=== PATIENT | male | born 1985 | race Caucasian/White ===

== ENCOUNTER 2016-11-19 13:16 | Emergency (ER) | payer SELFPAY ==
[~2016-11-19] VITALS: Ht 188 cm; Wt 80.0 kg
[~2016-11-19 13:16] MED LIST: ALPR0.5T99 PO
[2016-11-19 13:18] VITALS: BP 136/84; PULSE 97; RESP 20; TEMP 97.9; O2SAT 97
--- NOTE | 2016-11-19 15:37 | RADRPT ---
EXAM DATE/TIME: 11/19/2016 15:08 [facility] COMPARISON: No previous studies available for comparison. INDICATIONS : Left leg pain. MEDICAL HISTORY : Left leg pain. Anxiety. SURGICAL HISTORY : None. ENCOUNTER: Initial ACUITY: 4 - 6 days PAIN SCORE: 0/10 LOCATION: Left leg. TECHNIQUE: Venous ultrasound of the leg was performed from the inguinal ligament to the proximal calf. Real-samantha e, color Doppler and spectral tracing, compression and augmentation techniques were used. FINDINGS: There is normal compressibility of the deep venous system from the inguinal region to the proximal ca lf. No echogenic clot is seen in the lumen of the common femoral, femoral, popliteal, and posterior tibial veins. There is a normal response of the venous system to proximal and distal augmentation an d respiration. However, the palpable lump along the medial left calf represents a thrombosed superficial varicose ve in. CONCLUSION: 1. The palpable lump along the medial calf represents a thrombosed superficial varicose vein. 2. The deep veins of the left lower extremity are patent. Diony Lange MD on November 19, 2016 at 15:34 Board Certified Radiologist. This report was verified electronically.
[2016-11-19] MEDS ORDERED: ASPIRIN 325 MG TAB PO ONE (16:30)
[2016-11-19] MEDS ORDERED: ASPI325T PO (16:39)
--- NOTE | 2016-11-19 16:39 | PD ---
HPI Chief Complaint: Abnormal Results Time Seen by Provider: 16:30 Travel History International Travel<30 days: No Contact w/Intl Traveler<30days: No Traveled to known affect area: No History of Present Illness HPI 31-year-old male presents to the emergency department sent by his psychiatrist for possible DVT to the left lower extremity. Patient states he has a lump to his left leg that is tender to palpation. He denies any history of blood clots. He states that he has been off of illicit drugs for proximal knee 1 month and 4 days. He also has a history of anxiety and ADHD. He denies any fevers or chills. No other complaints. PFSH Past Medical History Anxiety: Yes Social History Alcohol Use: Yes (OCCASIONAL) Tobacco Use: No Substance Use: No Allergies-Medications (Allergen,Severity, Reaction): Coded Allergies: No Known Allergies (Unverified , 09/24/11) Reported Meds & Prescriptions Reported Meds & Active Scripts Active Reported Xanax (Alprazolam) 0.5 Mg Tab 0.5 Mg PO BIDPRN Review of Systems Except as stated in HPI: all other systems reviewed are Neg Physical Exam Narrative GENERAL: Well-developed well-nourished male patient, ambulatory. Afebrile. SKIN: Warm and dry. HEAD: Normocephalic. Atraumatic. EYES: No scleral icterus. No injection or drainage. NECK: Supple, trachea midline. No JVD or lymphadenopathy. CARDIOVASCULAR: Regular rate and rhythm without murmurs, gallops, or rubs. Left pedal pulse is 2+. RESPIRATORY: Breath sounds equal bilaterally. No accessory muscle use. Lungs sounds are clear to auscultation. GASTROINTESTINAL: Abdomen soft, non-tender, nondistended. MUSCULOSKELETAL: No cyanosis, or edema. Patient has a small palpable on the left medial calf. There is tenderness to palpation. BACK: Nontender without obvious deformity. No CVA tenderness. Data Data Last Documented VS Vital Signs Date Time Temp Pulse Resp B/P Pulse Ox O2 Delivery O2 Flow Rate FiO2 11/19/16 13:18 97.9 97 20 136/84 97 Orders Us Leg Venous Doppler (11/19/16 ) Aspirin (Aspirin) (11/19/16 16:30) MDM Medical Decision Making Medical Screen Exam Complete: Yes Emergency Medical Condition: Yes Medical Record Reviewed: Yes Differential Diagnosis Varicose vein versus cyst versus DVT Narrative Course 31 year old male presents to the emergency department sent by his psychiatrist to rule out DVT to the left leg. Venous Doppler ultrasound of the left extremity shows a thrombosed superficial varicose vein, no DVT. I discussed this with my attending physician, Dr. Sauer, who recommends aspirin and warm compresses. Patient is given aspirin 325 mg by mouth. He is stable for discharge. The patient was discharged in stable condition with instructions, including return instructions and follow up instructions. Diagnosis Primary Impression: Superficial vein thrombosis Referrals: Primary Care Physician call for appointment Patient Instructions: General Instructions, Superficial Thrombophlebitis (ED) Additional Instructions: Take Aspirin 325 mg PO daily. Warm compresses. Follow up with a primary care physician. Return to the emergency department for any acute, worsening of symptoms. Med/Other Pt SpecificInfo: Prescription(s) given Scripts Aspirin 325 Mg [id number] Mg PO DAILY #30 TAB Ref 0 Prov:aCrolyn Silverio 11/19/16 Disposition: 01 DISCHARGE HOME Condition: Stable Carolyn Silverio Nov 19, 2016 16:39
== END 2016-11-19 16:46 | disposition home or self-care (01) ==
LOC: NEPB 13:16
DX: I82.812 Embolism and thrombosis of superficial veins of left lower extremity (principal)
CPT/HCPCS: 93971

== ENCOUNTER 2017-07-18 12:22 | Observation (INO) | payer OTHER ==
[~2017-07-18] VITALS: Ht 188 cm; Wt 70.6 kg
[2017-07-18] VITALS (7 sets, daily range): BP systolic 116–121; BP diastolic 64–73; PULSE 63–100; RESP 16–19; TEMP 97.2–98; O2SAT 98–99
[~2017-07-18 12:22] MED LIST changes: +ASPI-183 PO
[2017-07-18] MEDS ORDERED: SODIUM CHLOR 0.9% 1000 ML INJ 1,000 ML IV SCH (12:58)
[2017-07-18] MEDS ORDERED: SODIUM CHLORIDE 0.9% FLUSH 10 ML FLUSH IV FLUSH PRN (13:00)
[2017-07-18] MEDS ORDERED: ONDANSETRON HCL 4 MG/2 ML VIAL IVP ONE (13:00)
[2017-07-18] MEDS ORDERED: BACT800T5 PO (13:01)
--- NOTE | 2017-07-18 13:10 | PD ---
HPI Chief Complaint: Abdominal Pain Time Seen by Provider: 12:43 Travel History International Travel<30 days: No Contact w/Intl Traveler<30days: No Traveled to known affect area: No History of Present Illness HPI 32-year-old male presents to the emergency department for evaluation of jaundice , fatigue, nausea that started 4 days ago. Patient states he was at [facility] one week ago for infection in his right volar wrist. They did lab work at that time and told him that his liver enzymes were elevated. He states he did not have the jaundice or symptoms at that time. Patient also reports left lower quadrant abdominal pain that started 4 days ago. He denies any fevers or chills. He states he was a heavy alcoholic drinker up until 2 years ago. He also states that he has history of IV drug use. He was off of it for the past 4 months, but then restarted 2 weeks ago. He states that he uses IV Dilaudid and IV methamphetamine. Patient states that he was prescribed Percocet when he left for the [facility], but states he has not taken it and does not take Tylenol. He is on Clindamycin and Bactrim for skin infection. He reports surgery to the right hand, but no abdominal surgeries. No radiation of pain. Quality is aching. Severity is moderate. Patient denies any relieving or exacerbating factors. [facility] Past Medical History Anxiety: Yes Diminished Hearing: No Genitourinary: Yes (UTI) Tetanus Vaccination: < 5 Years Influenza Vaccination: No Social History Alcohol Use: Yes (OCCASIONAL) Tobacco Use: No Substance Use: Yes (IV Dilaudid and IV methamphetamine) Allergies-Medications (Allergen,Severity, Reaction): Coded Allergies: No Known Allergies (Verified Adverse Reaction, Unknown, 07/18/17) Reported Meds & Prescriptions Reported Meds & Active Scripts Active Reported Bactrim DS (Sulfamethoxazole-Trimethoprim) 800-160 Mg Tab 1 Tab PO BID Review of Systems Except as stated in HPI: all other systems reviewed are Neg Physical Exam Narrative GENERAL: Well-nourished, well-developed male patient, afebrile. SKIN: Focused skin assessment warm/dry. Patient has yellowing of the skin and sclera. Patient has area of erythema to right volar wrist with central scab, appears to be healing. HEAD: Normocephalic. Atraumatic EYES: No injection or drainage. NECK: Supple, trachea midline. No JVD or lymphadenopathy. CARDIOVASCULAR: Regular rate and rhythm without murmurs, gallops, or rubs. RESPIRATORY: Breath sounds equal bilaterally. No accessory muscle use. GASTROINTESTINAL: Abdomen soft and nondistended. Mild tenderness over right upper quadrant, left lower quadrant. MUSCULOSKELETAL: No cyanosis, or edema. BACK: Nontender without obvious deformity. No CVA tenderness. Data Data Last Documented VS Vital Signs Date Time Temp Pulse Resp B/P (MAP) Pulse Ox O2 Delivery O2 Flow Rate FiO2 07/18/17 14:20 97.8 66 17 119/73 (88) 99 Room Air Orders Orders Complete Blood Count With Diff (07/18/17 12:58) Comprehensive Metabolic Panel (07/18/17 12:58) Lipase (07/18/17 12:58) Prothrombin Time / Inr (Pt) (07/18/17 12:58) Act Partial Throm Time (Ptt) (07/18/17 12:58) Urinalysis - C+S If Indicated (07/18/17 12:58) Ct Abd/Pel W Iv Contrast(Rout) (07/18/17 12:58) Iv Access Insert/Monitor (07/18/17 12:58) Ecg Monitoring (07/18/17 12:58) Oximetry (07/18/17 12:58) Ondansetron Inj (Zofran Inj) (07/18/17 13:00) Sodium Chlor 0.9% 1000 Ml Inj (Ns 1000 M (07/18/17 12:58) Sodium Chloride 0.9% Flush (Ns Flush) (07/18/17 13:00) Ammonia (07/18/17 12:58) Tylenol (Acetaminophen) (07/18/17 12:58) Admit To Inpatient (07/18/17 ) Activity Oob With Assistance (07/18/17 16:07) Scd Bilateral/Knee High SHERRIE.QSHIFT (07/18/17 16:07) Vital Signs (Adult) SHERRIE.Q4H (07/18/17 16:07) Measuring Clerk / Telemetry SHERRIE.Q8H (07/18/17 16:07) Inpatient Certification (07/18/17 ) Ondansetron Inj (Zofran Inj) (07/18/17 16:15) Comprehensive Metabolic Panel (07/19/17 06:00) Complete Blood Count With Diff (07/19/17 06:00) Prothrombin Time / Inr (Pt) (07/19/17 06:00) Iohexol 350 Inj (Omnipaque 350 Inj) (07/18/17 16:04) Diet Regular Basic (07/18/17 Dinner) Sodium Chlor 0.9% 1000 Ml Inj (Ns 1000 M (07/18/17 16:15) Oxycodone (Roxicodone) (07/18/17 16:15) Ob/Psych Drug Screen, Urine (07/18/17 16:11) Us Abdomen Liver (07/18/17 ) Kelly-Hinds Virus Ab Eval (07/18/17 16:23) Cmv Dna Pcr Quantitative (07/18/17 16:23) Hsv1&2 Igg Select (07/18/17 16:23) Hepatitis Profile (07/18/17 16:23) Hepatitis B Core Total Ab (07/18/17 16:23) Admit Order (Ed Use Only) (07/18/17 16:28) Labs Laboratory Tests Test 07/18/17 13:10 07/18/17 13:15 07/18/17 13:20 Urine Color DARK-YELLOW Urine Turbidity CLEAR Urine pH 6.5 Urine Specific [place] 1.012 Urine Protein NEG mg/dL Urine Glucose (UA) NEG mg/dL Urine Ketones NEG mg/dL Urine Occult Blood NEG Urine Nitrite NEG Urine Bilirubin MOD Urine Urobilinogen 2.0 MG/DL Urine Leukocyte Esterase NEG Urine WBC LESS THAN 1 /hpf Urine Calcium Oxalate Crystals RARE /hpf Urine Mucus FEW /lpf Microscopic Urinalysis Comment CULT NOT INDICATED Ammonia 44 MCMOL/L White Blood Count 8.1 TH/MM3 Red Blood Count 4.27 MIL/MM3 Hemoglobin 12.1 GM/DL Hematocrit 36.1 % Mean Corpuscular Volume 84.7 FL Mean Corpuscular Hemoglobin 28.4 PG Mean Corpuscular Hemoglobin Concent 33.5 % Red Cell Distribution Width 17.0 % Platelet Count 308 TH/MM3 Mean Platelet Volume 8.8 FL CBC Comment AUTO DIFF Differential Total Cells Counted 100 Neutrophils % (Manual) 54 % Band Neutrophils % 1 % Lymphocytes % 26 % Monocytes % 1 % Eosinophils % 3 % Neutrophils # (Manual) 4.9 TH/MM3 Metamyelocytes 3 % Myelocytes 1 % Promyelocytes 1 % Differential Comment FINAL DIFF MANUAL Atypical Lymphocytes 10 % Prothrombin Time 12.1 SEC Prothromb Time International Ratio 1.1 RATIO Activated Partial Thromboplast Time 28.9 SEC Blood Urea Nitrogen 8 MG/DL Creatinine 0.77 MG/DL Random Glucose 101 MG/DL Total Protein 7.1 GM/DL Albumin 3.1 GM/DL Calcium Level 8.3 MG/DL Alkaline Phosphatase 450 U/L Aspartate Amino Transf (AST/SGOT) 1641 U/L Alanine Aminotransferase (ALT/SGPT) 2800 U/L Total Bilirubin 5.8 MG/DL Sodium Level 138 MEQ/L Potassium Level 3.6 MEQ/L Chloride Level 102 MEQ/L Carbon Dioxide Level 26.5 MEQ/L Anion Gap 10 MEQ/L Lipase 113 U/L Acetaminophen Level LESS THAN 2.0 MCG/ML [facility] Medical Decision Making Medical Screen Exam Complete: Yes Emergency Medical Condition: Yes Medical Record Reviewed: Yes Interpretation(s) Last Impressions Abdomen/Pelvis CT 07/18/17 1258 Signed Impressions: Service Date/Time: Tuesday, July 18, 2017 15:58 - CONCLUSION: Negative CT scan abdomen and pelvis. Jax Peace MD FACR Differential Diagnosis Hepatitis versus liver failure versus pancreatitis versus diverticulitis Narrative Course 32-year-old male presents to the emergency department for evaluation PT, nausea , chilling of the skin and eyes, abdominal pain for 4 days. CBC, CMP, lipase, PTT, PT/INR, UA, ammonia level, Tylenol level are ordered and pending. CT abdomen/pelvis with IV contrast is ordered and pending. Patient is given normal saline 1 L IV bolus, Zofran 4 mg IV. CBC shows no acute abnormality. CMP shows elevated bilirubin 5.8, AST 1641, ALT 2800, alkaline phosphatase 450. Lipase is 113. PT is 12.1, INR 1.1, PTT 28.9. UA shows moderate bilirubin. Ammonia level is 44. Tylenol level is less than 2.0. CT abdomen/pelvis is negative. Dr. Gómez accepted admission. Diagnosis Primary Impression: Acute liver failure Qualified Codes: K72.00 - Acute and subacute hepatic failure without coma Admitting Information Admitting Physician Requests: Admit Carolyn Silverio Jul 18, 2017 13:10
[2017-07-18 14:21] LABS: HEMATOCRIT 36.1 % (39.0-51.0); MEAN CELL VOLUME 84.7 FL (80.0-100.0); MEAN CORPUSCULAR HEMOGLOBIN 28.4 PG (27.0-34.0); MEAN CORPUSCULAR HGB CONC 33.5 % (32.0-36.0); PLATELET COUNT 308 TH/MM3 (150-450); RED BLOOD COUNT 4.27 MIL/MM3 (4.50-5.90); WHITE BLOOD COUNT 8.1 TH/MM3 (4.0-11.0)
[2017-07-18 14:22] LABS: HEMO FLAGS AUTO DIFF
[2017-07-18 14:26] LABS: APTT (PATIENT) 28.9 SEC (24.3-30.1); INTERNATIONAL NORMALIZED RATIO 1.1 RATIO; PROTHROMBIN TIME - PATIENT 12.1 SEC (9.8-11.6)
[2017-07-18 14:42] LABS: BLOOD, URINE NEG (NEG); CALCIUM OXALATE CRYSTALS,URINE RARE /hpf; COMMENT (UR) CULT NOT INDICATED; CULTURE IF INDICATED CULT NOT INDICATED; GLUCOSE,URINE NEG (NEG); KETONE, URINE NEG (NEG); MUCUS URINE FEW /lpf (OCC); NITRITE,URINE NEG (NEG); PH, URINE 6.5 (5.0-8.5); URINE COLOR DARK-YELLOW (YELLW/STRAW)
[2017-07-18 14:42] LABS: ANION GAP 10 MEQ/L (5-15); BICARBONATE 26.5 MEQ/L (21.0-32.0); BLOOD UREA NITROGEN 8 MG/DL (7-18); CHLORIDE 102 MEQ/L (98-107); POTASSIUM 3.6 MEQ/L (3.5-5.1); SODIUM (NA) 138 MEQ/L (136-145)
[2017-07-18 14:55] LABS: ALKALINE PHOSPHATASE 450 U/L (45-117); ALT (GPT) 2800 U/L (12-78); AST (GOT) 1641 U/L (15-37); TOTAL BILIRUBIN ADULT 5.8 MG/DL (0.2-1.0)
[2017-07-18 14:58] LABS: ATYPICAL LYMPHOCYTES 10 % (0-0); BANDS 1 % (0-6); EOSINOPHILS 3 % (0-4); METAMYELOCYTES 3 % (0-1); MYELOCYTES 1 % (0-0); NEUTROPHIL # MANUAL DIFF 4.9 TH/MM3 (1.8-7.7); POLYS (SEG NEUTROPHILS) 54 % (16-70); PROMYELOCYTES 1 % (0-0); WBC DIFF SAMPLE 100
[2017-07-18 14:59] LABS: SCAN/DIFF FINAL DIFF MANUAL
[2017-07-18 15:23] LABS: ACETAMINOPHEN LESS THAN 2.0 MCG/ML (10.0-30.0)
[2017-07-18] MEDS ORDERED: IOHEXOL 350 MG/ML 10 ML VIAL (for RAD DIAG) IVCONTRAST ONE (16:04)
--- NOTE | 2017-07-18 16:21 | RADRPT ---
EXAM DATE/TIME: 07/18/2017 15:58 [place] Corrected on: July 18, 2017; [facility] COMPARISON: No previous studies available for comparison. INDICATIONS : Left lateral abdomen pain today. IV CONTRAST: 92 cc Omnipaque 350 (iohexol) IV ORAL CONTRAST: No oral contrast ingested. RADIATION DOSE: 6.64 CTDIvol (mGy) MEDICAL HISTORY : None SURGICAL HISTORY : None. ENCOUNTER: Initial ACUITY: 1 day PAIN SCALE: 5/10 LOCATION: Left lateral abdomen TECHNIQUE: Volumetric scanning of the abdomen and pelvis was performed. Using automated exposure control and ad justment of the mA and/or kV according to patient size, radiation dose was kept as low as reasonably achievable to obtain optimal diagnostic quality images. DICOM format image data is available electro nically for review and comparison. FINDINGS: Lung base is are clear. The liver, spleen, pancreas and adrenals unremarkable Gallbladder is contracted There is symmetrical renal function Cecum and terminal ileum unremarkable There is no adenopathy There is no ascites Pelvic contents are normal Bone windows are unremarkable. CONCLUSION: Negative CT scan abdomen and pelvis. Jax Peace MD FACR on July 18, 2017 at 16:17 Board Certified Radiologist. This report was verified electronically. Jax Peace MD FACR on July 18, 2017 at 17:07 Board Certified Radiologist. This report was verified electronically.
--- NOTE | 2017-07-18 16:26 | HHI.HP ---
HPI Service [facility] Hospitalists Primary Care Physician Denisse Wright D.O. Admission Diagnosis Acute hepatocellular injury/Hepatitis Chief Complaint: Jaundice Travel History International Travel<30 Days: No Contact w/Intl Traveler <30 Da: No Traveled to Known Affected Are: No History of Present Illness Mr. Flores is a 32 y/o WM with hx of ADD and IVDA. Pt had recently relapsed and started using IV drugs around 2-3 weeks ago and was injecting into the upper extremities about once per day. He was injecting Methamphetamines and smoking marijuana. He denies any cocaine use or any other synthetic drug use. Pt recently was admitted to [facility] with right wrist cellulitis/abscess from 07/07 to 07/10. Pt was treated in the hospital with IV Zosyn and Vancomycin and was discharged on Cipro and Bactrim x 14 days and Percocet. He had a 2D echo performed which noted EF 60-65% and no evidence of vegetations. He was checked for HIV and viral hepatitis during that admission which were negative. His LFTs were elevated as well. Labs on 07/07 noted AST 353/ALT 420 and repeat labs on with AST 927/ALT 1168. He reports that has taken 6 Percocet pills over the last week since his discharge. He has been injecting Dilaudid for the last 3 days in the left arm. He last used methamphetamines yesterday. Around 4 days ago he started having increased fatigue, nausea and then 2 days ago started noticing yellowing of his eyes and darkening of his urine. He has hx of withdrawal symptoms from the opiates. Pt has not been on any prescription medications other than the recently prescribed antibiotics and Percocet. Pt had been on Suboxone previously but he has not taken this in 6 months. He denies any Tylenol (other than the Percocet) or NSAID use. Pt reports that his girlfriend has recently been sick with sore throat and congestion for about 1-2 weeks. The pt noted an enlarged lymph node in the right axilla that was present when the infection in the right wrist began. Pt also reports night sweats for several weeks where he wakes up "soaking the sheets." Denies any fevers or chills recently. He denies any sore throat. Pt denies sharing any needles. He was checked for HIV at [facility] which was negative. Review of Systems Constitutional: DENIES: Fever, Chills Ears, nose, mouth, throat: DENIES: Hearing loss, Throat pain, Running Nose Respiratory: DENIES: Cough, Sputum production, Shortness of breath Cardiovascular: DENIES: Chest pain, Lower Extremity Edema Gastrointestinal: COMPLAINS OF: Abdominal pain, GERD, Nausea, DENIES: Black stools, Bloody stools, Constipation, Diarrhea, Vomiting Genitourinary: DENIES: Urgency, Hematuria, Dysuria Musculoskeletal: COMPLAINS OF: Muscle aches Integumentary: COMPLAINS OF: Abnormal pigmentation, DENIES: Rash Neurologic: DENIES: Headache Psychiatric: DENIES: Confusion Past Family Social History Past Medical History ADD IVDA with methamphetamines and dilaudid Past Surgical History Hardware placement in right wrist for boxer's fracture Reported Medications Bactrim DS (Sulfamethoxazole-Trimethoprim) 800-160 Mg Tab 1 Tab PO BID Ciprofloxacin Percocet Allergies: Coded Allergies: No Known Allergies (Verified Allergy, Unknown, 07/18/17) Family History Noncontributory Social History (+)Tobacco use, 1/2-1ppd Occasional alcohol use, none in the last week or so. No regular use Relapsed IDVA recently within the last 2 weeks with use of IV Dilaudid and methamphetamines, last used methamphetamines yesterday. No narcotic pain meds in 4 days. Pt had been drug free for 4 months. He started using IV drugs 2 years ago when he went through divorce (+)Marijuana use Physical Exam Vital Signs Vital Signs Date Time Temp Pulse Resp B/P (MAP) Pulse Ox O2 Delivery O2 Flow Rate FiO2 07/18/17 14:20 97.8 66 17 119/73 (88) 99 Room Air 07/18/17 13:10 68 17 98 Room Air 07/18/17 13:10 18 07/18/17 12:24 97.7 100 16 119/64 (82) 98 Physical Exam GENERAL: This is a well-nourished, well-developed patient, in no apparent distress. SKIN: Jaundice HEENT: Atraumatic. Normocephalic. No temporal or scalp tenderness. Bilateral scleral icterus. Airway patent. NECK: Trachea midline, supple, nontender. CARDIO: Regular RESP: CTA bilaterally. No wheezes, rales, or rhonchi. ABD: +BS, soft, RUQ and LLQ tenderness, nondistended. EXT: Right volar aspect of the wrist with some minimal erythema and a central scab which appears to be healing well. Enlarged lymph node in the right axilla NEURO: Awake and alert. Motor and sensory grossly within normal limits. Normal speech. Laboratory Laboratory Tests Test 07/18/17 13:10 07/18/17 13:15 07/18/17 13:20 Urine Color DARK-YELLOW Urine Turbidity CLEAR Urine pH 6.5 Urine Specific [place] 1.012 Urine Protein NEG Urine Glucose (UA) NEG Urine Ketones NEG Urine Occult Blood NEG Urine Nitrite NEG Urine Bilirubin MOD Urine Urobilinogen 2.0 Urine Leukocyte Esterase NEG Urine WBC LESS THAN 1 Urine Calcium Oxalate Crystals RARE Urine Mucus FEW Microscopic Urinalysis Comment CULT NOT INDICATED Ammonia 44 White Blood Count 8.1 Red Blood Count 4.27 Hemoglobin 12.1 Hematocrit 36.1 Mean Corpuscular Volume 84.7 Mean Corpuscular Hemoglobin 28.4 Mean Corpuscular Hemoglobin Concent 33.5 Red Cell Distribution Width 17.0 Platelet Count 308 Mean Platelet Volume 8.8 CBC Comment AUTO DIFF Differential Total Cells Counted 100 Neutrophils % (Manual) 54 Band Neutrophils % 1 Lymphocytes % 26 Monocytes % 1 Eosinophils % 3 Neutrophils # (Manual) 4.9 Metamyelocytes 3 Myelocytes 1 Promyelocytes 1 Differential Comment FINAL DIFF MANUAL Atypical Lymphocytes 10 Prothrombin Time 12.1 Prothromb Time International Ratio 1.1 Activated Partial Thromboplast Time 28.9 Blood Urea Nitrogen 8 Creatinine 0.77 Random Glucose 101 Total Protein 7.1 Albumin 3.1 Calcium Level 8.3 Alkaline Phosphatase 450 Aspartate Amino Transf (AST/SGOT) 1641 Alanine Aminotransferase (ALT/SGPT) 2800 Total Bilirubin 5.8 Sodium Level 138 Potassium Level 3.6 Chloride Level 102 Carbon Dioxide Level 26.5 Anion Gap 10 Lipase 113 Acetaminophen Level LESS THAN 2.0 Result Diagram: 07/18/17 1320 07/18/17 1320 Imaging Last Impressions Abdomen/Pelvis CT 07/18/17 1258 Signed Impressions: Service Date/Time: Tuesday, July 18, 2017 15:58 - CONCLUSION: Negative CT scan abdomen and pelvis. Jax Peace MD FACR Septic Shock Reassessment Heart: Regular rate and rhythm Lungs: Clear Skin: Warm Caprini VTE Risk Assessment Caprini VTE Risk Assessment: Mod/High Risk (score >= 2) Caprini Risk Assessment Model Point Value = 1 Point Value = 2 Point Value = 3 Point Value = 5 Age 41-60 Minor surgery BMI > 25 kg/m2 Swollen legs Varicose veins or History of unexplained or recurrent spontaneous Oral contraceptives or hormone replacement Sepsis (< 1 month) Serious lung disease, including pneumonia (< 1 month) Abnormal pulmonary function Acute myocardial infarction Congestive heart failure (< 1 month) History of inflammatory bowel disease Medical patient at bed rest Age 61-74 Arthroscopic surgery Major open surgery (> 45 min) Laparoscopic surgery (> 45 min) Malignancy Confined to bed (> 72 hours) Immobilizing plaster cast Central venous access Age >= 75 History of VTE Family history of VTE Factor V Leiden Prothrombin [id number] Lupus anticoagulant Anticardiolipin antibodies Elevated serum homocysteine Heparin-induced thrombocytopenia Other congenital or acquired thrombophilia Stroke (< 1 month) Elective arthroplasty Hip, pelvis, or leg fracture Acute spinal cord injury (< 1 month) Prophylaxis Regimen Total Risk Factor Score Risk Level Prophylaxis Regimen 0-1 Low Early ambulation 2 Moderate Order ONE of the following: *Sequential Compression Device (SCD) *Heparin 5000 units SQ BID 3-4 Higher Order ONE of the following medications: *Heparin 5000 units SQ TID *Enoxaparin/Lovenox 40 mg SQ daily (WT < 150 kg, CrCl > 30 mL/min) *Enoxaparin/Lovenox 30 mg SQ daily (WT < 150 kg, CrCl > 10-29 mL/min) *Enoxaparin/Lovenox 30 mg SQ BID (WT < 150 kg, CrCl > 30 mL/min) AND/OR *Sequential Compression Device (SCD) 5 or more Highest Order ONE of the following medications: *Heparin 5000 units SQ TID (Preferred with Epidurals) *Enoxaparin/Lovenox 40 mg SQ daily (WT < 150 kg, CrCl > 30 mL/min) *Enoxaparin/Lovenox 30 mg SQ daily (WT < 150 kg, CrCl > 10-29 mL/min) *Enoxaparin/Lovenox 30 mg SQ BID (WT < 150 kg, CrCl > 30 mL/min) AND *Sequential Compression Device (SCD) Assessment and Plan Problem List: (1) Acute liver failure ICD Codes: K72.00 - Acute and subacute hepatic failure without coma Status: Acute Plan: - Pt is a 32 y/o WM with hx of ADD and IVDA. - Pt had recently relapsed and started using IV drugs around 2-3 weeks ago and was injecting into the upper extremities about once per day, Methamphetamines and smoking marijuana. Pt recently was admitted to [facility] with right wrist cellulitis/abscess from 07/07 to 07/10. Pt was treated in the hospital with IV Zosyn and Vancomycin and was discharged on Cipro and Bactrim x 14 days and Percocet. He had a 2D echo performed which noted EF 60-65% and no evidence of vegetations. He was checked for HIV and viral hepatitis during that admission which were negative. His LFTs were elevated as well. Labs on 07/07 noted AST 353/ALT 420 and repeat labs on 07/10 with AST 927/ALT 1168. - Pt presented to the ED with complaints of 4 days ago he started having increased fatigue, nausea and then 2 days ago started noticing yellowing of his eyes and darkening of his urine. - He reports that has taken 6 Percocet pills over the last week since his discharge. He has been injecting Dilaudid for the last 3 days in the left arm. He last used methamphetamines yesterday. - Labs at admission noted AST 1641/ALT 2800, AlkPhos 450, and Tbili 5.8 - CT Abd/pelvis was negative. - Pts acute liver injury/failure may be secondary to drug induced hepatitis with his continued IVDA with methamphetamines vs. viral etiologies vs. other. Pt has not used much tylenol and initial labs were negative for acetaminophen. - Check Viral Hepatitis, CMV, EBV, and HSV - Check Liver US - Blood cultures - Monitor LFTs and PT/INR - IVF - Supportive care - We will give Oxycodone PRN as he has had withdrawal symptoms in the past - DVT prophylaxis with SCDs Physician Certification 2 Midnight Certification Type: Admission for Inpatient Services Order for Inpatient Services The services are ordered in accordance with Medicare regulations or non- Medicare payer requirements, as applicable. In the case of services not specified as inpatient-only, they are appropriately provided as inpatient services in accordance with the 2-midnight benchmark. Estimated LOS (days): 3 3 days is the estimated time the patient will need to remain in the hospital, assuming treatment plan goals are met and no additional complications. Post-Hospital Plan: Home Problem Qualifiers (1) Acute liver failure: Qualified Codes: K72.00 - Acute and subacute hepatic failure without coma Camilla Henriquez Jul 18, 2017 16:26
[2017-07-18] MEDS: SODIUM CHLOR 0.9% 1000 ML INJ 1,000 ML IV SCH (16:52)
--- NOTE | 2017-07-18 17:19 | RADRPT ---
EXAM DATE/TIME: 07/18/2017 16:51 [place] COMPARISON: No previous studies available for comparison. INDICATIONS : Jaundice. MEDICAL HISTORY : Urinary tract infection. Anxiety. Substance abuse. SURGICAL HISTORY : Right hand surgery. ENCOUNTER: Initial ACUITY: 1 day PAIN SCORE: 0/10 LOCATION: Bilateral upper quadrant MEASUREMENTS: LIVER: 17.4 cm length COMMON DUCT: 2 mm RIGHT KIDNEY: 11.9 x 5.9 x 4.8 cm SPLEEN: 12.8 cm length FINDINGS: LIVER: Liver is free of focal defects. COMMON DUCT: Small and contracted with thickened wall. GALLBLADDER: Contains no stones, demonstrates no wall thickening or pericholecystic fluid. PANCREAS: The visualized portions are within normal limits. RIGHT KIDNEY: No hydronephrosis, stone or mass. SPLEEN: Mildly prominent. CONCLUSION: Contracted gallbladder with wall thickening, nonspecific. There are no gallstones. Jax Peace MD FACR on July 18, 2017 at 17:16 Board Certified Radiologist. This report was verified electronically.
[2017-07-19] VITALS: BP 109/62; PULSE 82; RESP 17; TEMP 97.4; O2SAT 99
[2017-07-19] MEDS: SODIUM CHLOR 0.9% 1000 ML INJ 1,000 ML IV SCH ×2 (01:10→21:35)
[2017-07-19 08:00] VITALS: BP 120/69; PULSE 75; RESP 20; TEMP 97.7; O2SAT 95
[2017-07-19 10:11] LABS: INTERNATIONAL NORMALIZED RATIO 1.1 RATIO; PROTHROMBIN TIME - PATIENT 12.1 SEC (9.8-11.6)
[2017-07-19 10:13] LABS: HEMATOCRIT 39.9 % (39.0-51.0); MEAN CELL VOLUME 83.6 FL (80.0-100.0); MEAN CORPUSCULAR HEMOGLOBIN 28.4 PG (27.0-34.0); PLATELET COUNT 332 TH/MM3 (150-450); RED BLOOD COUNT 4.77 MIL/MM3 (4.50-5.90); WHITE BLOOD COUNT 8.4 TH/MM3 (4.0-11.0)
[2017-07-19 10:15] LABS: HEMO FLAGS AUTO DIFF
--- NOTE | 2017-07-19 10:17 | HHI.PR ---
Subjective Remarks Pt reports that overall he is feeling better today Tolerating oral intake No BM yet Objective Vitals Vital Signs Date Time Temp Pulse Resp B/P (MAP) Pulse Ox O2 Delivery O2 Flow Rate FiO2 07/19/17 08:00 97.7 75 20 120/69 (86) 95 07/19/17 07:14 20 07/19/17 00:00 97.4 82 17 109/62 (78) 99 07/18/17 20:00 98.0 86 16 116/64 (81) 99 07/18/17 20:00 85 07/18/17 17:34 97.2 65 19 119/67 (84) 99 07/18/17 17:05 97.8 63 17 121/66 (84) 99 07/18/17 16:58 97.8 63 17 121/66 (84) 99 Room Air 07/18/17 14:20 97.8 66 17 119/73 (88) 99 Room Air 07/18/17 13:10 68 17 98 Room Air 07/18/17 13:10 18 07/18/17 12:24 97.7 100 16 119/64 (82) 98 07/19/17 07/19/17 07/20/17 15:00 23:00 07:00 Intake Total 240 ml Balance 240 ml Intake Oral 240 ml Result Diagram: 07/18/17 1320 07/18/17 1320 Other Results Laboratory Tests Test 07/18/17 13:10 07/18/17 13:15 07/18/17 13:20 07/19/17 09:08 Urine Color DARK-YELLOW Urine Turbidity CLEAR Urine pH 6.5 Urine Specific [place] 1.012 Urine Protein NEG mg/dL Urine Glucose (UA) NEG mg/dL Urine Ketones NEG mg/dL Urine Occult Blood NEG Urine Nitrite NEG Urine Bilirubin MOD Urine Urobilinogen 2.0 MG/DL Urine Leukocyte Esterase NEG Urine WBC LESS THAN 1 /hpf Urine Calcium Oxalate Crystals RARE /hpf Urine Mucus FEW /lpf Microscopic Urinalysis Comment CULT NOT INDICATED Urine Opiates Screen NEG Urine Barbiturates Screen NEG Urine Amphetamines Screen POS Urine Benzodiazepines Screen NEG Urine Cocaine Screen NEG Urine Cannabinoids Screen NEG Ammonia 44 MCMOL/L White Blood Count 8.1 TH/MM3 Red Blood Count 4.27 MIL/MM3 Hemoglobin 12.1 GM/DL Hematocrit 36.1 % Mean Corpuscular Volume 84.7 FL Mean Corpuscular Hemoglobin 28.4 PG Mean Corpuscular Hemoglobin Concent 33.5 % Red Cell Distribution Width 17.0 % Platelet Count 308 TH/MM3 Mean Platelet Volume 8.8 FL CBC Comment AUTO DIFF Differential Total Cells Counted 100 Neutrophils % (Manual) 54 % Band Neutrophils % 1 % Lymphocytes % 26 % Monocytes % 1 % Eosinophils % 3 % Neutrophils # (Manual) 4.9 TH/MM3 Metamyelocytes 3 % Myelocytes 1 % Promyelocytes 1 % Differential Comment FINAL DIFF MANUAL Atypical Lymphocytes 10 % Prothrombin Time 12.1 SEC 12.1 SEC Prothromb Time International Ratio 1.1 RATIO 1.1 RATIO Activated Partial Thromboplast Time 28.9 SEC Blood Urea Nitrogen 8 MG/DL Creatinine 0.77 MG/DL Random Glucose 101 MG/DL Total Protein 7.1 GM/DL Albumin 3.1 GM/DL Calcium Level 8.3 MG/DL Alkaline Phosphatase 450 U/L Aspartate Amino Transf (AST/SGOT) 1641 U/L Alanine Aminotransferase (ALT/SGPT) 2800 U/L Total Bilirubin 5.8 MG/DL Sodium Level 138 MEQ/L Potassium Level 3.6 MEQ/L Chloride Level 102 MEQ/L Carbon Dioxide Level 26.5 MEQ/L Anion Gap 10 MEQ/L Lipase 113 U/L Acetaminophen Level LESS THAN 2.0 MCG/ML Imaging Last Impressions Abdomen/Pelvis CT 07/18/17 1258 Signed Impressions: Service Date/Time: Tuesday, July 18, 2017 15:58 - CONCLUSION: Negative CT scan abdomen and pelvis. Jax Peace MD FACR Liver Ultrasound 07/18/17 0000 Signed Impressions: Service Date/Time: Tuesday, July 18, 2017 16:51 - CONCLUSION: Contracted gallbladder with wall thickening, nonspecific. There are no gallstones. Jax Peace MD FACR Objective Remarks General: NAD, AAOx3 Chest: CTA Cardiac: Regular Abd: +BS, soft ND, mild LUQ tenderness Ext: Right wrist volar erythema is stable, central scab, appears to be healing. A/P Problem List: (1) Acute liver failure ICD Codes: K72.00 - Acute and subacute hepatic failure without coma Status: Acute Plan: - Pt is a 32 y/o WM with hx of ADD and IVDA. - Pt had recently relapsed and started using IV drugs around 2-3 weeks ago and was injecting into the upper extremities about once per day, Methamphetamines and smoking marijuana. Pt recently was admitted to [facility] with right wrist cellulitis/abscess from 07/07 to 07/10. Pt was treated in the hospital with IV Zosyn and Vancomycin and was discharged on Cipro and Bactrim x 14 days and Percocet. He had a 2D echo performed which noted EF 60-65% and no evidence of vegetations. He was checked for HIV and viral hepatitis during that admission which were negative. His LFTs were elevated as well. Labs on 07/07 noted AST 353/ALT 420 and repeat labs on 07/10 with AST 927/ALT 1168. - Pt presented to the ED with complaints of 4 days ago he started having increased fatigue, nausea and then 2 days ago started noticing yellowing of his eyes and darkening of his urine. - He reports that has taken 6 Percocet pills over the last week since his discharge. He has been injecting Dilaudid for the last 3 days in the left arm. He last used methamphetamines yesterday. - Labs at admission noted AST 1641/ALT 2800, AlkPhos 450, and Tbili 5.8 - CT Abd/pelvis was negative. - Pts acute liver injury/failure may be secondary to drug induced hepatitis with his continued IVDA with methamphetamines vs. viral etiologies vs. other. Pt has not used much Tylenol and initial labs were negative for acetaminophen. - Await Viral Hepatitis, CMV, EBV, and HSV - Liver US (07/18) --> Contracted gallbladder with wall thickening, nonspecific. There are no gallstones - Blood cultures pending - Awaiting repeat LFTs today - Monitor LFTs and PT/INR - IVF - Supportive care - We will give Oxycodone PRN as he has had withdrawal symptoms in the past - DVT prophylaxis with SCDs Assessment and Plan Patient examined. Assessment and plan formulated with Camilla Henriquze PA-C. Jhony agree with the above. acute hepatitis/hepatocellular injury. presumed secondary to injection of amphetamines. he also injects dilaudid. wean oxycodone to avoid narcotic w/d. follow LFT for trend down. viral studies pending. Pt not decompensated from liver injury at this point. wrist wound not tender/hot/draining. Problem Qualifiers (1) Acute liver failure: Qualified Codes: K72.00 - Acute and subacute hepatic failure without coma Camilla Henriquez Jul 19, 2017 10:17 Chintan Gómez MD Jul 19, 2017 12:35
[2017-07-19 10:57] LABS: ALKALINE PHOSPHATASE 451 U/L (45-117); ALT (GPT) 2712 U/L (12-78); ANION GAP 7 MEQ/L (5-15); AST (GOT) 1603 U/L (15-37); BICARBONATE 25.7 MEQ/L (21.0-32.0); BLOOD UREA NITROGEN 7 MG/DL (7-18); CHLORIDE 105 MEQ/L (98-107); GLOMERULAR FILTRATION RATE 105 ML/MIN (>89); SODIUM (NA) 138 MEQ/L (136-145); TOTAL BILIRUBIN ADULT 6.5 MG/DL (0.2-1.0)
[2017-07-19 11:05] LABS: BANDS 6 % (0-6); BASOPHILS 2 % (0-2); EOSINOPHILS 1 % (0-4); NEUTROPHIL # MANUAL DIFF 5.2 TH/MM3 (1.8-7.7); POLYS (SEG NEUTROPHILS) 56 % (16-70); WBC DIFF SAMPLE 100
[2017-07-19 11:06] LABS: PLATELET ESTIMATE SMEAR NORMAL (NORMAL); PLATELET MORPHOLOGY NORMAL (NORMAL); SCAN/DIFF FINAL DIFF MANUAL
[2017-07-19] MEDS ORDERED: MAGNESIUM HYDROXIDE SUSP 30 ML CUP PO PRN (11:15)
[2017-07-19] MEDS ORDERED: MAGNESIUM HYDROXIDE SUSP 30 ML CUP PO ONE (11:15)
[2017-07-19 12:00] VITALS: BP 118/59; PULSE 71; RESP 19; TEMP 96.9; O2SAT 96
[2017-07-19] MEDS: DOCUSATE SODIUM 100 MG CAP PO SCH ×2 (13:41→21:35)
[2017-07-19 14:26] VITALS: PULSE 95
[2017-07-19 20:00] VITALS: BP 112/63; PULSE 64; RESP 17; TEMP 97.6; O2SAT 97
[2017-07-20] VITALS (7 sets, daily range): BP systolic 105–112; BP diastolic 57–68; PULSE 55–78; RESP 16–17; TEMP 97.1–97.9; O2SAT 95–97
[2017-07-20] MEDS: ONDANSETRON HCL 4 MG/2 ML VIAL IV PRN (01:41)
[2017-07-20 04:14] LABS: ANION GAP 8 MEQ/L (5-15); BLOOD UREA NITROGEN 9 MG/DL (7-18); CHLORIDE 104 MEQ/L (98-107); POTASSIUM 4.1 MEQ/L (3.5-5.1); SODIUM (NA) 140 MEQ/L (136-145)
[2017-07-20 04:22] LABS: ALKALINE PHOSPHATASE 397 U/L (45-117); ALT (GPT) 2401 U/L (12-78); AST (GOT) 1327 U/L (15-37); TOTAL BILIRUBIN ADULT 5.2 MG/DL (0.2-1.0)
[2017-07-20] MEDS: DOCUSATE SODIUM 100 MG CAP PO SCH ×2 (08:07→21:00)
--- NOTE | 2017-07-20 10:01 | HHI.PR ---
Subjective Remarks Pt reports that he had a BM yesterday evening and the LLQ pain does feel better Tolerating oral intake Denies any nausea/vomiting Objective Vitals Vital Signs Date Time Temp Pulse Resp B/P (MAP) Pulse Ox O2 Delivery O2 Flow Rate FiO2 07/20/17 07:54 97.9 78 16 105/59 (74) 97 07/20/17 01:20 69 07/20/17 00:00 97.4 65 17 109/68 (82) 97 07/19/17 20:00 97.6 64 17 112/63 (79) 97 07/19/17 14:26 95 07/19/17 12:00 96.9 71 19 118/59 (78) 96 Result Diagram: 07/19/17 0908 07/20/17 0340 Other Results Laboratory Tests Test 07/18/17 13:10 07/18/17 13:15 07/18/17 13:20 07/19/17 09:08 Urine Color DARK-YELLOW Urine Turbidity CLEAR Urine pH 6.5 Urine Specific [place] 1.012 Urine Protein NEG mg/dL Urine Glucose (UA) NEG mg/dL Urine Ketones NEG mg/dL Urine Occult Blood NEG Urine Nitrite NEG Urine Bilirubin MOD Urine Urobilinogen 2.0 MG/DL Urine Leukocyte Esterase NEG Urine WBC LESS THAN 1 /hpf Urine Calcium Oxalate Crystals RARE /hpf Urine Mucus FEW /lpf Microscopic Urinalysis Comment CULT NOT INDICATED Urine Opiates Screen NEG Urine Barbiturates Screen NEG Urine Amphetamines Screen POS Urine Benzodiazepines Screen NEG Urine Cocaine Screen NEG Urine Cannabinoids Screen NEG Ammonia 44 MCMOL/L White Blood Count 8.1 TH/MM3 8.4 TH/MM3 Red Blood Count 4.27 MIL/MM3 4.77 MIL/MM3 Hemoglobin 12.1 GM/DL 13.6 GM/DL Hematocrit 36.1 % 39.9 % Mean Corpuscular Volume 84.7 FL 83.6 FL Mean Corpuscular Hemoglobin 28.4 PG 28.4 PG Mean Corpuscular Hemoglobin Concent 33.5 % 34.0 % Red Cell Distribution Width 17.0 % 17.0 % Platelet Count 308 TH/MM3 332 TH/MM3 Mean Platelet Volume 8.8 FL 8.8 FL CBC Comment AUTO DIFF AUTO DIFF Differential Total Cells Counted 100 100 Neutrophils % (Manual) 54 % 56 % Band Neutrophils % 1 % 6 % Lymphocytes % 26 % 34 % Monocytes % 1 % 1 % Eosinophils % 3 % 1 % Neutrophils # (Manual) 4.9 TH/MM3 5.2 TH/MM3 Metamyelocytes 3 % Myelocytes 1 % Promyelocytes 1 % Differential Comment FINAL DIFF MANUAL FINAL DIFF MANUAL Atypical Lymphocytes 10 % % Prothrombin Time 12.1 SEC 12.1 SEC Prothromb Time International Ratio 1.1 RATIO 1.1 RATIO Activated Partial Thromboplast Time 28.9 SEC Blood Urea Nitrogen 8 MG/DL 7 MG/DL Creatinine 0.77 MG/DL 0.84 MG/DL Random Glucose 101 MG/DL 145 MG/DL Total Protein 7.1 GM/DL 7.2 GM/DL Albumin 3.1 GM/DL 3.0 GM/DL Calcium Level 8.3 MG/DL 8.6 MG/DL Alkaline Phosphatase 450 U/L 451 U/L Aspartate Amino Transf (AST/SGOT) 1641 U/L 1603 U/L Alanine Aminotransferase (ALT/SGPT) 2800 U/L 2712 U/L Total Bilirubin 5.8 MG/DL 6.5 MG/DL Sodium Level 138 MEQ/L 138 MEQ/L Potassium Level 3.6 MEQ/L 4.0 MEQ/L Chloride Level 102 MEQ/L 105 MEQ/L Carbon Dioxide Level 26.5 MEQ/L 25.7 MEQ/L Anion Gap 10 MEQ/L 7 MEQ/L Lipase 113 U/L Acetaminophen Level LESS THAN 2.0 MCG/ML Basophils % 2 % Platelet Estimate NORMAL Platelet Morphology Comment NORMAL Estimat Glomerular Filtration Rate 105 ML/MIN Direct Bilirubin 4.9 MG/DL Monoscreen NEG Test 07/20/17 03:40 Blood Urea Nitrogen 9 MG/DL Creatinine 0.80 MG/DL Random Glucose 104 MG/DL Total Protein 6.8 GM/DL Albumin 2.9 GM/DL Calcium Level 8.4 MG/DL Alkaline Phosphatase 397 U/L Aspartate Amino Transf (AST/SGOT) 1327 U/L Alanine Aminotransferase (ALT/SGPT) 2401 U/L Total Bilirubin 5.2 MG/DL Direct Bilirubin 4.2 MG/DL Sodium Level 140 MEQ/L Potassium Level 4.1 MEQ/L Chloride Level 104 MEQ/L Carbon Dioxide Level 28.0 MEQ/L Anion Gap 8 MEQ/L Indirect Bilirubin 1.0 MG/DL Imaging Last Impressions Abdomen/Pelvis CT 07/18/17 1258 Signed Impressions: Service Date/Time: Tuesday, July 18, 2017 15:58 - CONCLUSION: Negative CT scan abdomen and pelvis. Jax Peace MD FACR Liver Ultrasound 07/18/17 0000 Signed Impressions: Service Date/Time: Tuesday, July 18, 2017 16:51 - CONCLUSION: Contracted gallbladder with wall thickening, nonspecific. There are no gallstones. Jax Peace MD FACR Objective Remarks General: NAD, AAOx3 Chest: CTA Cardiac: Regular Abd: +BS, soft ND, minimal LLQ tenderness Ext: Right wrist volar erythema is stable, central scab, appears to be healing. A/P Problem List: (1) Acute liver failure ICD Codes: K72.00 - Acute and subacute hepatic failure without coma Status: Acute Plan: - Pt is a 32 y/o WM with hx of ADD and IVDA. - Pt had recently relapsed and started using IV drugs around 2-3 weeks ago and was injecting into the upper extremities about once per day, Methamphetamines and smoking marijuana. Pt recently was admitted to [facility] with right wrist cellulitis/abscess from 07/07 to 07/10. Pt was treated in the hospital with IV Zosyn and Vancomycin and was discharged on Cipro and Bactrim x 14 days and Percocet. He had a 2D echo performed which noted EF 60-65% and no evidence of vegetations. He was checked for HIV and viral hepatitis during that admission which were negative. His LFTs were elevated as well. Labs on 07/07 noted AST 353/ALT 420 and repeat labs on 07/10 with AST 927/ALT 1168. - Pt presented to the ED with complaints of 4 days ago he started having increased fatigue, nausea and then 2 days ago started noticing yellowing of his eyes and darkening of his urine. - He reports that has taken 6 Percocet pills over the last week since his discharge. He has been injecting Dilaudid for the last 3 days in the left arm. He last used methamphetamines yesterday. - Labs at admission noted AST 1641/ALT 2800, AlkPhos 450, and Tbili 5.8 - CT Abd/pelvis was negative. - Pts acute liver injury/failure may be secondary to drug induced hepatitis with his continued IVDA with methamphetamines vs. viral etiologies vs. other. Pt has not used much Tylenol and initial labs were negative for acetaminophen. - Pt does not appear decompensated from liver injury at this point. - Await Viral Hepatitis, CMV, EBV, and HSV - Liver US (07/18) --> Contracted gallbladder with wall thickening, nonspecific. There are no gallstones - Blood cultures with NGTD - Repeat LFTs are tending down, continue to monitor LFTs and PT/INR - Supportive care - We will give Oxycodone PRN as he has had withdrawal symptoms in the past, decreased the Oxycodone to 5mg Q6H PRN and continue to wean off. - DVT prophylaxis with SCDs Assessment and Plan Patient examined. Assessment and plan formulated with Camilla Henriquez PA-C. I agree with the above. severe hepatitis and hepatocellular injury ivdu with amphetamines and dilaudid. viral studies pending. lft trending down. pt has been inpt drug rehab before. says he has a plan after d/c Problem Qualifiers (1) Acute liver failure: Qualified Codes: K72.00 - Acute and subacute hepatic failure without coma Camilla Henriquez Jul 20, 2017 10:01 Chintan Gómez MD Jul 20, 2017 11:24
[2017-07-20] MEDS: SODIUM CHLOR 0.9% 1000 ML INJ 1,000 ML IV SCH (12:19)
[2017-07-21] VITALS: BP 113/59; PULSE 63; RESP 18; TEMP 94.3; O2SAT 96
[2017-07-21] MEDS: SODIUM CHLOR 0.9% 1000 ML INJ 1,000 ML IV SCH (02:00)
[2017-07-21 04:00] VITALS: BP 114/65; PULSE 59; RESP 18; TEMP 97.5; O2SAT 97
[2017-07-21 08:00] VITALS: BP 118/63; PULSE 77; RESP 18; TEMP 97.9; O2SAT 99
[2017-07-21] MEDS: DOCUSATE SODIUM 100 MG CAP PO SCH ×2 (09:00→19:22)
[2017-07-21 09:19] LABS: PROTHROMBIN TIME - PATIENT 11.2 SEC (9.8-11.6)
--- NOTE | 2017-07-21 09:25 | HHI.PR ---
Subjective Remarks No new complaints Pt had a BM this morning Abd pain is improved Objective Vitals Vital Signs Date Time Temp Pulse Resp B/P (MAP) Pulse Ox O2 Delivery O2 Flow Rate FiO2 07/21/17 08:00 97.9 77 18 118/63 (81) 99 07/21/17 04:00 97.5 59 18 114/65 (81) 97 07/21/17 00:00 94.3 63 18 113/59 (77) 96 07/20/17 20:00 97.7 68 17 107/57 (74) 95 07/20/17 19:46 62 07/20/17 16:00 97.1 55 16 112/65 (81) 97 07/20/17 12:00 97.3 61 16 106/57 (73) 96 Result Diagram: 07/19/17 0908 07/20/17 0340 Other Results Laboratory Tests Test 07/20/17 03:40 07/21/17 06:40 Blood Urea Nitrogen 9 MG/DL Creatinine 0.80 MG/DL Random Glucose 104 MG/DL Total Protein 6.8 GM/DL Albumin 2.9 GM/DL Calcium Level 8.4 MG/DL Alkaline Phosphatase 397 U/L Aspartate Amino Transf (AST/SGOT) 1327 U/L Alanine Aminotransferase (ALT/SGPT) 2401 U/L Total Bilirubin 5.2 MG/DL Direct Bilirubin 4.2 MG/DL Sodium Level 140 MEQ/L Potassium Level 4.1 MEQ/L Chloride Level 104 MEQ/L Carbon Dioxide Level 28.0 MEQ/L Anion Gap 8 MEQ/L Indirect Bilirubin 1.0 MG/DL Prothrombin Time 11.2 SEC Prothromb Time International Ratio 1.0 RATIO Imaging Last Impressions Abdomen/Pelvis CT 07/18/17 1258 Signed Impressions: Service Date/Time: Tuesday, July 18, 2017 15:58 - CONCLUSION: Negative CT scan abdomen and pelvis. Jax Peace MD FACR Liver Ultrasound 07/18/17 0000 Signed Impressions: Service Date/Time: Tuesday, July 18, 2017 16:51 - CONCLUSION: Contracted gallbladder with wall thickening, nonspecific. There are no gallstones. Jax Peace MD FACR Objective Remarks General: NAD, AAOx3 Chest: CTA Cardiac: Regular Abd: +BS, soft ND, minimal RUQ tenderness Ext: Right wrist volar erythema is stable, central scab, appears to be healing. A/P Problem List: (1) Acute liver failure ICD Codes: K72.00 - Acute and subacute hepatic failure without coma Status: Acute Plan: - Pt is a 32 y/o WM with hx of ADD and IVDA. - Pt had recently relapsed and started using IV drugs around 2-3 weeks ago and was injecting into the upper extremities about once per day, Methamphetamines and smoking marijuana. Pt recently was admitted to [facility] with right wrist cellulitis/abscess from 07/07 to 07/10. Pt was treated in the hospital with IV Zosyn and Vancomycin and was discharged on Cipro and Bactrim x 14 days and Percocet. He had a 2D echo performed which noted EF 60-65% and no evidence of vegetations. He was checked for HIV and viral hepatitis during that admission which were negative. His LFTs were elevated as well. Labs on 07/07 noted AST 353/ALT 420 and repeat labs on 07/10 with AST 927/ALT 1168. - Pt presented to the ED with complaints of 4 days ago he started having increased fatigue, nausea and then 2 days ago started noticing yellowing of his eyes and darkening of his urine. - He reports that has taken 6 Percocet pills over the last week since his discharge. He has been injecting Dilaudid for the last 3 days in the left arm. He last used methamphetamines yesterday. - Labs at admission noted AST 1641/ALT 2800, AlkPhos 450, and Tbili 5.8 - CT Abd/pelvis was negative. - Pts acute liver injury/failure may be secondary to drug induced hepatitis with his continued IVDA with methamphetamines vs. viral etiologies vs. other. Pt has not used much Tylenol and initial labs were negative for acetaminophen. - Pt does not appear decompensated from liver injury at this point. - Await Viral Hepatitis, CMV, EBV, and HSV - Monospot is negative. - Liver US (07/18) --> Contracted gallbladder with wall thickening, nonspecific. There are no gallstones - Blood cultures with NGTD - Repeat LFTs are tending down, continue to monitor LFTs and PT/INR - Supportive care - We will give Oxycodone PRN as he has had withdrawal symptoms in the past, decreased the Oxycodone to 5mg Q6H PRN and continue to wean off. - Pt reports that he has been though drug rehab programs previously, and at this time he is planning to go to [place] upon discharge to start a program there for rehabilitation. - DVT prophylaxis with SCDs Assessment and Plan Patient examined. Assessment and plan formulated with Camilla Henriquez PA-C. I agree with the above. Problem Qualifiers (1) Acute liver failure: Qualified Codes: K72.00 - Acute and subacute hepatic failure without coma Camilla Henriquez Jul 21, 2017 09:25 Michelet Nair DO Jul 28, 2017 20:52
[2017-07-21 09:49] LABS: INDIRECT BILIRUBIN 0.7 MG/DL (0.0-0.8)
[2017-07-21 12:00] VITALS: BP 114/63; PULSE 75; RESP 17; TEMP 97.4; O2SAT 98
[2017-07-21 16:00] VITALS: BP 115/67; PULSE 78; RESP 16; TEMP 96.5; O2SAT 96
[2017-07-21] MEDS ORDERED: NICOTINE 14 MG/24 HR PATCH T-DERMAL ONE (17:00)
[2017-07-21 20:00] VITALS: BP 106/72; PULSE 71; RESP 18; TEMP 98.1; O2SAT 96
[2017-07-21] MEDS: ONDANSETRON HCL 4 MG/2 ML VIAL IV PRN (23:20)
[2017-07-22] VITALS: BP 117/62; PULSE 80; RESP 18; TEMP 97.1; O2SAT 97
[2017-07-22 01:40] LABS: EBV VCA IgM Negative (Negative)
[2017-07-22 08:00] VITALS: BP 106/66; PULSE 82; RESP 17; TEMP 96.6; O2SAT 98
[2017-07-22] MEDS: DOCUSATE SODIUM 100 MG CAP PO SCH (08:33)
[2017-07-22] MEDS ORDERED: REMOVE OLD PATCH T-DERMAL SCH (09:00)
[2017-07-22] MEDS ORDERED: NICOTINE 14 MG/24 HR PATCH T-DERMAL SCH (09:00)
[2017-07-22 09:37] LABS: INDIRECT BILIRUBIN 0.6 MG/DL (0.0-0.8); TOTAL BILIRUBIN ADULT 2.3 MG/DL (0.2-1.0)
--- NOTE | 2017-07-22 09:37 | HHI.DCPOC ---
Discharge Care Plan Diagnosis: (1) IVDU (intravenous drug user) (2) Hepatitis C antibody test positive (3) Acute hepatitis Goals to Promote Your Health - Pt was counselled about the newly diagnosed hepatitis C and the fact that this is a highly transmittable disease by blood transmission/sharing needles as well as through sexual contact. - If he does not go to the drug rehab program in [place] then he is to followup with [facility] in 2-3 days, call for an appt. - Instructed the pt to followup with NA - He will need to see his PCP, Dr. Denisse Wright, in 1 week, call for an appt - Pt will need to followup with [facility] in 2 weeks regarding the Hepatitis C and the acute hepatitis, nikita for an appt. Directions to Meet Your Goals Take your medications as prescribed Follow your dietary instruction Follow activity as directed Keep your appointments as scheduled Take your immunizations and boosters as scheduled If your symptoms worsen call your PCP, if no PCP go to Urgent Care Center or Emergency Room Smoking is Dangerous to Your Health. Avoid second hand smoke Call the 24-hour hour crisis hotline for domestic abuse at Camilla Henriquez Jul 22, 2017 09:37 Michelet Nair DO Jul 28, 2017 20:53
[2017-07-22 12:00] VITALS: BP 112/60; PULSE 97; RESP 16; TEMP 97.8; O2SAT 97
--- NOTE | 2017-07-22 12:24 | HHI.DS ---
Discharge Summary Admission Date Jul 18, 2017 at 16:29 Discharge Date: Jul 22, 2017 Admitting Diagnosis Acute hepatocellular injury/Hepatitis (1) Acute hepatitis Diagnosis: Principal ICD Codes: B17.9 - Acute viral hepatitis, unspecified (2) IVDU (intravenous drug user) Diagnosis: Secondary ICD Codes: F19.90 - Other psychoactive substance use, unspecified, uncomplicated Status: Chronic (3) Hepatitis C antibody test positive Diagnosis: Secondary ICD Codes: R76.8 - Other specified abnormal immunological findings in serum Brief History Mr. Flores is a 32 y/o WM with hx of ADD and IVDA. Pt had recently relapsed and started using IV drugs around 2-3 weeks ago and was injecting into the upper extremities about once per day. He was injecting Methamphetamines and smoking marijuana. He denies any cocaine use or any other synthetic drug use. Pt recently was admitted to [facility] with right wrist cellulitis/abscess from 07/07 to 07/10. Pt was treated in the hospital with IV Zosyn and Vancomycin and was discharged on Cipro and Bactrim x 14 days and Percocet. He had a 2D echo performed which noted EF 60-65% and no evidence of vegetations. He was checked for HIV and viral hepatitis during that admission which were negative. His LFTs were elevated as well. Labs on 07/07 noted AST 353/ALT 420 and repeat labs on with AST 927/ALT 1168. He reports that has taken 6 Percocet pills over the last week since his discharge. He has been injecting Dilaudid for the last 3 days in the left arm. He last used methamphetamines yesterday. Around 4 days ago he started having increased fatigue, nausea and then 2 days ago started noticing yellowing of his eyes and darkening of his urine. He has hx of withdrawal symptoms from the opiates. Pt has not been on any prescription medications other than the recently prescribed antibiotics and Percocet. Pt had been on Suboxone previously but he has not taken this in 6 months. He denies any Tylenol (other than the Percocet) or NSAID use. Pt reports that his girlfriend has recently been sick with sore throat and congestion for about 1-2 weeks. The pt noted an enlarged lymph node in the right axilla that was present when the infection in the right wrist began. Pt also reports night sweats for several weeks where he wakes up "soaking the sheets." Denies any fevers or chills recently. He denies any sore throat. Pt denies sharing any needles. He was checked for HIV at [facility] which was negative. CBC/BMP: 07/19/17 0908 07/20/17 0340 Significant Findings Laboratory Tests Test 07/20/17 03:40 07/21/17 06:40 07/21/17 11:20 07/22/17 07:37 Albumin 2.9 GM/DL (3.4-5.0) 2.8 GM/DL (3.4-5.0) 3.1 GM/DL (3.4-5.0) Calcium Level 8.4 MG/DL (8.5-10.1) Alkaline Phosphatase 397 U/L (45-117) 357 U/L (45-117) 353 U/L (45-117) Aspartate Amino Transf (AST/SGOT) 1327 U/L (15-37) 1042 U/L (15-37) 798 U/L (15-37) Alanine Aminotransferase (ALT/SGPT) 2401 U/L (12-78) 2053 U/L (12-78) 1985 U/L (12-78) Total Bilirubin 5.2 MG/DL (0.2-1.0) 3.0 MG/DL (0.2-1.0) 2.3 MG/DL (0.2-1.0) Direct Bilirubin 4.2 MG/DL (0.0-0.2) 2.3 MG/DL (0.0-0.2) 1.7 MG/DL (0.0-0.2) Indirect Bilirubin 1.0 MG/DL (0.0-0.8) Imaging Last Impressions Abdomen/Pelvis CT 07/18/17 1258 Signed Impressions: Service Date/Time: Tuesday, July 18, 2017 15:58 - CONCLUSION: Negative CT scan abdomen and pelvis. Jax Peace MD FACR Liver Ultrasound 07/18/17 0000 Signed Impressions: Service Date/Time: Tuesday, July 18, 2017 16:51 - CONCLUSION: Contracted gallbladder with wall thickening, nonspecific. There are no gallstones. Jax Peace MD FACR PE at Discharge General: NAD, AAOx3 Chest: CTA Cardiac: Regular Abd: +BS, soft ND, minimal RUQ tenderness Ext: Right wrist volar erythema is stable, central scab, appears to be healing. Hospital Course Pt is a 32 y/o WM with hx of ADD and IVDA. Pt had recently relapsed and started using IV drugs around 2-3 weeks ago and was injecting into the upper extremities about once per day, Methamphetamines and smoking marijuana. Pt recently was admitted to [facility] with right wrist cellulitis/abscess from 07/07 to 07/10. Pt was treated in the hospital with IV Zosyn and Vancomycin and was discharged on Cipro and Bactrim x 14 days and Percocet. He had a 2D echo performed which noted EF 60-65% and no evidence of vegetations. He was checked for HIV and viral hepatitis during that admission which were negative. His LFTs were elevated as well. Labs on 07/07 noted AST 353/ALT 420 and repeat labs on with AST 927/ALT 1168. Pt presented to the ED with complaints of 4 days ago he started having increased fatigue, nausea and then 2 days ago started noticing yellowing of his eyes and darkening of his urine. He reports that has taken 6 Percocet pills over the last week since his discharge. He has been injecting Dilaudid for the last 3 days in the left arm. He last used methamphetamines the day prior to admission. Labs at admission noted AST 1641/ALT 2800, AlkPhos 450, and Tbili 5.8. CT Abd/ pelvis was negative. It was thought that the pts acute hepatitis may be secondary to drug induced hepatitis with his continued IVDA with methamphetamines vs. viral etiologies vs. other. Pt has not used much Tylenol and initial labs were negative for acetaminophen. Pt did not appear decompensated from liver injury during this admission. Viral Hepatitis panel was positive for Hepatitis C Ab, genotype and viral load are pending. The hepatitis C along with the IV drug use is likely the cause for the acute hepatitis. CMV is pending. EBV was negative for acute infection. HSV1 IgG was positive and HSV2 IgG was negative. Monospot is negative. Liver US (07/18) --> Contracted gallbladder with wall thickening, nonspecific. There are no gallstones. Blood cultures with NGTD. Repeat LFTs have been tending down but at admission labs were AST 798, ALT 1985, Tbili 2.3, DBili 1.7, AlkPhos 353. Pt was given Oxycodone 10mg Q4H PRN as he has had withdrawal symptoms in the past, decreased the Oxycodone to 5mg Q4H PRN and then 5mg Q8H PRN and this will be continued for the next 3 days, then stop. Pt reports that he has been though drug rehab programs previously, and at this time he is planning to go to [place] upon discharge to start a program there for rehabilitation. Pt was counselled about the newly diagnosed hepatitis C and the fact that this is a highly transmittable disease by blood transmission/sharing needles as well as through sexual contact. If he does not go to the drug rehab program in [place] then he is to followup with [facility] in 2-3 days. Instructed the pt to followup with NA He will need to see his PCP, Dr. Denisse Wright, in 1 week Pt will need to followup with [facility] in 2 weeks regarding the Hepatitis C and the acute hepatitis. Pt Condition on Discharge: Stable Discharge Disposition: Discharge Home Discharge Instructions DIET: Follow Instructions for: As Tolerated, No Restrictions Activities you can perform: Regular-No Restrictions Follow up Referrals: Gastroenterology - 1 Week @ [facility] PCP Follow-up - [address] Denisse Wright Psychiatry Adult - 3-5 Days @ [facility] Discontinued Medications: Sulfamethoxazole-Trimethoprim (Bactrim DS) 800-160 Mg Tab 1 TAB PO BID for Infection, #14 TAB 0 Refills Additional Information Patient examined. Assessment and plan formulated with Camilla Henriquez PA-C. I agree with the above. Camilla Henriquez Jul 22, 2017 12:24 Michelet Nair DO Jul 28, 2017 20:52
[2017-07-22] MEDS ORDERED: OXYC-392 PO (12:50)
[2017-07-24 15:52] LABS: HCV RNA PCR LOGIU/ML 5.82 (0-1.18)
[2017-07-28 07:32] LABS: HEROIN (6-ACETYLMORPHINE) UR NEG (NEG); OBMETHADONE UR NEG (NEG); PHENCYCLIDINE URINE NEG (NEG)
[2017-07-28 07:33] LABS: BATH SALTS (MDPV) UR NEG (NEG); ECSTASY (MDMA) UR NEG (NEG); GABAPENTIN UR NEG (NEG); K2 SPICE UR NEG (NEG)
[2017-07-28 07:37] LABS: HYDROMORPHONE U POS (NEG)
== END 2017-07-22 13:26 | disposition home or self-care (01) ==
LOC: NEPC 12:22 → NEDA 16:29 → INTOOBSV 16:29 → N07B 17:20
PROVIDERS: ADMIT Hospitalist; ATTEND Hospitalist
DX: B17.9 Acute viral hepatitis, unspecified (principal); B19.20 Unspecified viral hepatitis C without hepatic coma; F12.90 Cannabis use, unspecified, uncomplicated; F19.90 Other psychoactive substance use, unspecified, uncomplicated; R53.83 Other fatigue; R10.32 Left lower quadrant pain; Z51.81 Encounter for therapeutic drug level monitoring
CPT/HCPCS: 74177; 76705; 80048; 80053; 80074; 80076; 80307; 81001; 82140; 82248; 83690; 85007; 85027; 85610; 85730; 86308; 86664; 86665; 86695; 86696; 86704; 87040; 87497; 87522; 87641; 87902; 96361; 96374; 96376; 99285; G0378; G0481; J2405; J7030; Q9967